=== PATIENT | female | born 1945 | race Caucasian/White ===

== ENCOUNTER 2016-09-29 23:08 | Inpatient (IN) | payer OTHER, MEDICAID ==
[~2016-09-29] VITALS: Ht 160 cm; Wt 66.2 kg
[~2016-09-29 23:08] MED LIST: ASPI-1093 PO; COZ50 PO; ISOS30TE PO; LANTUS SUBQ; METF500T PO; METO-50 PO; NIFE10SG6 PO; SIMV10TA1 PO; TRI48 PO
[2016-09-29 23:23] VITALS: BP 150/82
--- NOTE | 2016-09-30 02:58 | NUR ---
BIB WHEELCHAIR TO ER BED 4
--- NOTE | 2016-09-30 03:00 | NUR ---
71 Y/O F W/C/O ABD PAIN , N/V/D, FEVER, COUGH,SOB AND SWOLLEN TO FACE X 1 MTH. NO S/S OF DISTRESS NOTED AT THE MOMENT. ER MD MADE AWARE.
[2016-09-30 03:30] LABS: BASOPHILS % (AUTO) 1.1 % (0.0-2.0); EOSINOPHILS % (AUTO) 1.1 % (0.0-4.0); HEMATOCRIT 33.9 % (36-48); HEMOGLOBIN 10.8 g/dL (12.0-16.0); LYMPHOCYTES # (AUTO) 1.3 K/uL (2.5-16.5); LYMPHOCYTES % (AUTO) 30.3 % (20.5-51.1); MEAN CORPUSCULAR HEMOGLOBIN 26 pg (27-31); MEAN CORPUSCULAR HGB CONC 32 g/dL (33-37); MEAN CORPUSCULAR VOLUME 81 fL (80-94); MONOCYTES # (AUTO) 0.3 K/uL (0.8-1.0); MONOCYTES % (AUTO) 7.1 % (1.7-9.3); NEUTROPHILS # (AUTO) 2.7 K/uL (1.8-7.7); NEUTROPHILS % (AUTO) 60.4 % (42.2-75.2); PLATELET COUNT (AUTO) 180 K/uL (140-450); RED BLOOD CELL COUNT(AUTO) 4.17 MIL/uL (4.20-5.40); RED CELL DISTRIBUTION WIDTH 18.2 % (11.6-13.7); WHITE BLOOD COUNT (AUTO) 4.3 K/uL (4.8-10.8)
[2016-09-30 03:48] LABS: ANION GAP 12.6 (8-16); CALCIUM 8.3 mg/dL (8.5-10.1); CARBON DIOXIDE 26.1 mmol/L (21-32); CREATININE 1.2 mg/dL (0.6-1.3); POTASSIUM 3.7 mmol/L (3.5-5.1); TOTAL BILIRUBIN 0.8 mg/dL (0.0-1.0); TOTAL PROTEIN, SERUM 7.8 g/dL (6.4-8.2)
--- NOTE | 2016-09-30 05:07 | NUR ---
UNABLE TO INITIATE AN IV LINE. ER MD NOTIFIED AFTER SEVERAL ATTEMPS BY 3 DIFFERENT NURSES.
[2016-09-30 06:04] LABS: APPEARANCE,URINE HAZY (CLEAR); BILIRUBIN,URINE NEGATIVE (NEGATIVE); BLOOD, URINE NEGATIVE (NEGATIVE); COLOR,URINE YELLOW (YELLOW); LEUKOCYTE ESTERASE ,URINE NEGATIVE (NEGATIVE); NITRITE, URINE NEGATIVE (NEGATIVE); PH,URINE 5.5 (5.0-9.0); PROTEIN,URINE 2+ (NEGATIVE); UGLUCOSE NEGATIVE (NEGATIVE)
[2016-09-30 06:20] LABS: RBC,URINE NONE SEEN /HPF (0-5)
[2016-09-30 06:21] LABS: BACTERIA,URINE 1-9 (FEW) /HPF (None Seen); URINE AMORPHOUS URATE 2+ /HPF (None Seen)
[2016-09-30 06:22] LABS: SQUAMOUS EPITHELIAL CELL,UR 4-10 (MOD) /LPF (0-3 (FEW))
[2016-09-30] MEDS ORDERED: FUROSEMIDE 40 MG/4 ML VIAL IVP ONE (06:40)
[2016-09-30] MEDS ORDERED: NITROGLYCERIN 2% 1 GM PKT TP ONE (06:40)
--- NOTE | 2016-09-30 07:14 | NUR ---
CALL TO GIVE REPORT ON PT BUT WAS TOLD TO CALL BACK.
[2016-09-30] MEDS ORDERED: HYDROcodone/APAP 5/325 MG 1 TAB TAB PO PRN (07:20)
[2016-09-30] MEDS ORDERED: LORazepam 2 MG/ML VIAL IVP PRN (07:20)
[2016-09-30] MEDS ORDERED: DEXTROSE 50% 50 ML SYR IVP PRN (07:20)
[2016-09-30] MEDS ORDERED: ACETAMINOPHEN 325 MG TAB PO PRN (07:20)
[2016-09-30] MEDS ORDERED: ONDANSETRON 4 MG/2 ML VIAL IVP PRN (07:20)
[2016-09-30] MEDS ORDERED: INSULIN LISPRO SLIDING SCALE 100 UNITS/ML VIAL SUBQ PRN (07:20)
[2016-09-30] MEDS: BLOOD GLUCOSE MONITORING 1 DEV DEV FS SCH ×4 (07:30→21:00)
--- NOTE | 2016-09-30 07:48 | NUR ---
Patient appears to be resting comfortably in bed. Vital Signs within normal limits. Respirations even and unlabored.
--- NOTE | 2016-09-30 07:55 | NUR ---
Patient will be admitted to care of DR VERAS. Admited to TELE. Will go to room 110A. Belongings list completed. Report to AMBREEN.
[2016-09-30 08:15] VITALS: BP 154/89
--- NOTE | 2016-09-30 08:30 | NUR ---
Admitted from , with chief complaint of SOB X 1 MONTH. PT AAOX4. NO SOB NOTED AT THIS TIME. NO C/O PAIN. IV TO RT AC PATENT AND INTACT. CHEST DIMINISHED AIR ENTRY TO THE BASES. ABDOMEN SOFT, BOWEL SOUNDS PRESENT. BLE SWOLLEN +1 NOTED. 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 DAUGHTER KLEVER AT THE BEDSIDE. PT IS A 71 y/o ,Female, Cooperative,oriented to call light, bed, phone,television, bathroom, smoking policy,visiting hours, procedures, ID bracelet on. Belongings list checked. INSTRUCTED PT TO CALL FOR ASSISTANCE, CALL LIGHT WITHIN REACH. PT VERBALIZED UNDERSTANDING.
--- NOTE | 2016-09-30 08:40 | NUR ---
PATIENT HAS BEEN SCREENED AND CATEGORIZED MODERATE NUTRITION RISK. PATIENT WILL BE SEEN WITHIN 3-5 DAYS OF ADMISSION. 10/02/16-10/04/[address]
[2016-09-30] MEDS: NIFEdipine 10 MG CAPLF PO SCH (09:27)
[2016-09-30] MEDS: ECOTRIN 81 MG TABEC PO SCH (09:28)
[2016-09-30] MEDS: FUROSEMIDE 20 MG/2 ML VIAL IVP SCH (09:28)
[2016-09-30] MEDS: LOSARTAN 50 MG TAB PO SCH (09:29)
[2016-09-30] MEDS: metFORMIN 500 MG TAB PO SCH ×2 (09:29→17:00)
[2016-09-30] MEDS: METOPROLOL 50 MG TAB PO SCH ×2 (09:29→17:00)
[2016-09-30] MEDS: FENOFIBRATE 48 MG TAB PO SCH (09:30)
--- NOTE | 2016-09-30 09:30 | NUR ---
BEDSIDE COMMODE PROVIDED AT THE BEDSIDE.
[2016-09-30] MEDS: ISOSORBIDE MONONITRATE 30 MG TABER PO SCH ×2 (09:31→22:35)
[2016-09-30 12:00] VITALS: BP 123/71
--- NOTE | 2016-09-30 12:00 | NUR ---
LUNCH HELD FOR PROCEDURE. PT VERBALIZED UNDERSTANDING.
[2016-09-30 12:19] LABS: CREATINE KINASE MB 1.6 ng/mL (0-3.6)
--- NOTE | 2016-09-30 15:00 | NUR ---
NPO MAINTAINED. ULTRASOUND OF ABDOMEN ON GOING AT THE BEDSIDE.
--- NOTE | 2016-09-30 15:30 | NUR ---
ULTRASOUND OF ABDOMEN COMPLETED. LATE LUNCH SERVED.
[2016-09-30 16:00] VITALS: BP 120/62
--- NOTE | 2016-09-30 18:00 | NUR ---
PT EATING DINNER. NO SOB NOTED. NO COMPLAINTS MADE. VISITORS AT THE BEDSIDE.
[2016-09-30] MEDS: SIMVASTATIN 10 MG TAB PO SCH (18:03)
--- NOTE | 2016-09-30 19:10 | NUR ---
PT RESTING IN BED. NO SOB NOTED. NO SIGNS OF PAIN. WILL ENDORSE TO NEXT SHIFT NURSE FOR CONTINUITY OF CARE.
[2016-09-30 20:00] VITALS: BP 137/60
--- NOTE | 2016-09-30 20:00 | NUR ---
SEEN PT ASLEEP BUT EASILY AROUSABLE. INITIAL ASSESSMENT DONE. VITAL SIGNS CHECKED. PT DENIES ANY DISCOMFORT. SAFETY REINFORCED. PT DENIES ANY OTHER NEEDS. CALL LIGHT W/IN REACH.
--- NOTE | 2016-09-30 21:00 | NUR ---
BLOOD SUGAR CHECKED:151. WILL COVER W/ INSULIN. SNACKS GIVEN.
[2016-09-30] MEDS: INSULIN DETEMIR 100 UNITS/ML 10 ML VIAL SUBQ SCH (22:35)
--- NOTE | 2016-09-30 23:30 | NUR ---
SEEN PT ASLEEP. VS CHECKED. PT DENIES ANY DISCOMFORT. CALL LIGHT W/IN REACH.
[2016-10-01] VITALS: BP 137/72
[2016-10-01 04:00] VITALS: BP 141/69
--- NOTE | 2016-10-01 04:00 | NUR ---
AWAKEN PT. PT SAID "I'M SO SLEEPY". VS CHECKED. PT DENIES ANY DISCOMFORT.
--- NOTE | 2016-10-01 05:30 | NUR ---
BLOOD SUGAR CHECKED: 75. NO COVERAGE NEEDED.
--- NOTE | 2016-10-01 06:00 | NUR ---
SEEN PT GOT UP FROM THE BEDSIDE COMMODE. PT GIVEN APPLE JUICEX1. PT DENIES ANY OTHER NEEDS.
[2016-10-01 06:32] LABS: BASOPHILS % (AUTO) 0.4 % (0.0-2.0); EOSINOPHILS # (AUTO) 0.1 K/uL (0-0.4); EOSINOPHILS % (AUTO) 2.3 % (0.0-4.0); HEMATOCRIT 30.1 % (36-48); HEMOGLOBIN 9.6 g/dL (12.0-16.0); LYMPHOCYTES % (AUTO) 19.8 % (20.5-51.1); MEAN CORPUSCULAR HEMOGLOBIN 25 pg (27-31); MEAN CORPUSCULAR HGB CONC 32 g/dL (33-37); MEAN CORPUSCULAR VOLUME 80 fL (80-94); MONOCYTES # (AUTO) 0.5 K/uL (0.8-1.0); MONOCYTES % (AUTO) 9.1 % (1.7-9.3); NEUTROPHILS # (AUTO) 3.4 K/uL (1.8-7.7); NEUTROPHILS % (AUTO) 68.4 % (42.2-75.2); PLATELET COUNT (AUTO) 170 K/uL (140-450); RED BLOOD CELL COUNT(AUTO) 3.77 MIL/uL (4.20-5.40); RED CELL DISTRIBUTION WIDTH 18.5 % (11.6-13.7)
[2016-10-01 06:44] LABS: ANION GAP 9.6 (8-16); CALCIUM 8.2 mg/dL (8.5-10.1); CARBON DIOXIDE 29.4 mmol/L (21-32)
[2016-10-01 06:47] LABS: MAGNESIUM 1.2 mg/dL (1.8-2.4); PHOSPHORUS 4.1 mg/dL (2.5-4.9)
[2016-10-01] MEDS: BLOOD GLUCOSE MONITORING 1 DEV DEV FS SCH ×4 (06:47→21:01)
--- NOTE | 2016-10-01 07:05 | NUR ---
RECEIVED REPORT FROM NIGHT NURSE. PT IS AOX4. PT HAS NASAL CANNULA DELIVERING 02 AT 2L. PT'S IV IS ON THE RIGHT AC PATENT AND INTACT. PT'S SKIN IS INTACT. PT AMB TO BS WITH ASSISTANCE. PT DENIES SOB AND PAIN. PT HAS CALL LIGHT WITHIN READ, BED IS LOWERED, AND FLAT. WILL CONTINUE TO MONITOR.
[2016-10-01 07:29] VITALS: BP 134/75
[2016-10-01] MEDS: ISOSORBIDE MONONITRATE 30 MG TABER PO SCH ×3 (09:00→20:55)
--- NOTE | 2016-10-01 09:00 | NUR ---
SCHEDULED LASIX NOT ADMINISTERED. POTASSIUM 3.0 WILL NOTIFY
[2016-10-01] MEDS: LOSARTAN 50 MG TAB PO SCH (09:03)
[2016-10-01] MEDS: metFORMIN 500 MG TAB PO SCH ×2 (09:03→17:40)
[2016-10-01] MEDS: ECOTRIN 81 MG TABEC PO SCH (09:04)
[2016-10-01] MEDS: METOPROLOL 50 MG TAB PO SCH ×2 (09:04→17:00)
[2016-10-01] MEDS: FENOFIBRATE 48 MG TAB PO SCH (09:05)
[2016-10-01] MEDS: FUROSEMIDE 20 MG/2 ML VIAL IVP SCH ×2 (09:06→09:11)
--- NOTE | 2016-10-01 09:20 | NUR ---
CM NOTE INITIAL REVIEW [facility]# [phone] PH# [phone]
[2016-10-01] MEDS: NIFEdipine 10 MG CAPLF PO SCH (09:31)
--- NOTE | 2016-10-01 10:10 | NUR ---
SPOKE WITH DARY AZUL ABOUT PT'S POTASSIUM LEVEL OF 3.0. ORDERS RECEIVED.
[2016-10-01] MEDS ORDERED: POTASSIUM CHLORIDE 40 MEQ, LIDOCAINE 1% 25 MG in NACL 0.9% 250 ML IV ONE (10:15)
[2016-10-01 12:00] VITALS: BP 108/64
--- NOTE | 2016-10-01 12:00 | NUR ---
PT IS SLEEPING IN BED SHOWS NO S/S OF DISTRESS
[2016-10-01] MEDS ORDERED: MAG SULF 2000 MG/WATER PREMIX 50 ML IV ONE (12:40)
--- NOTE | 2016-10-01 14:00 | NUR ---
ASSISTED PT TO BSC. PT TOLERATED WELL. PT VOIDED.
[2016-10-01 16:00] VITALS: BP 95/59
--- NOTE | 2016-10-01 16:30 | NUR ---
BS CHECK : 98 NO INSULIN COVERAGE
[2016-10-01] MEDS: SIMVASTATIN 10 MG TAB PO SCH (17:42)
--- NOTE | 2016-10-01 19:05 | NUR ---
GAVE REPORT TO NIGHT NURSE AT BEDSIDE. PT ENDORSED IN STABLE CONDITION.
--- NOTE | 2016-10-01 19:30 | NUR ---
RECEIVED REPORT FROM DAY RN AT BEDSIDE, PATIENT IS AAOX4, RESTING IN BED, ON O2 2L VIA NC, NO SOB OR SIGN OF DISTRESS OBSERVED, IV TO LEFT AC PATENT AND INTACT, SKIN INTACT, DISCUSSED PLAN OF CARE WITH PATIENT, PATIENT VERBALIZED UNDERSTANDING, SAFETY MEASURES CHECKED, CALL LIGHT WITHIN REACH. WILL CONTINUE TO MONITOR.
[2016-10-01 20:00] VITALS: BP 116/70
[2016-10-01] MEDS: INSULIN DETEMIR 100 UNITS/ML 10 ML VIAL SUBQ SCH (20:58)
--- NOTE | 2016-10-01 21:15 | NUR ---
PM MEDS ADMINISTERED, PATIENT TOLERATED WELL, CALL LIGHT WITHIN REACH. WILL CONTINUE TO MONITOR.
--- NOTE | 2016-10-02 | NUR ---
VITAL SIGNS STABLE, NO SOB OR SIGN OF DISTRESS, CALL LIGHT WITHIN REACH. WILL CONTINUE TO MONITOR.
[2016-10-02 00:16] VITALS: BP 121/66
--- NOTE | 2016-10-02 02:30 | NUR ---
PATIENT SLEEPING, NO SOB OR SIGN OF DISTRESS, CALL LIGHT WITHIN REACH. WILL CONTINUE TO MONITOR.
[2016-10-02 04:00] VITALS: BP 123/70
--- NOTE | 2016-10-02 04:40 | NUR ---
VITAL SIGNS STABLE, NO SOB OR SIGN OF DISTRESS, PATIENT SLEEPING, EASILY AWOKEN, CALL LIGHT WITHIN REACH. WILL CONTINUE TO MONITOR.
[2016-10-02 05:43] LABS: BASOPHILS % (AUTO) 0.6 % (0.0-2.0); EOSINOPHILS # (AUTO) 0.1 K/uL (0-0.4); EOSINOPHILS % (AUTO) 2.2 % (0.0-4.0); HEMATOCRIT 30.2 % (36-48); HEMOGLOBIN 9.5 g/dL (12.0-16.0); LYMPHOCYTES # (AUTO) 2.1 K/uL (2.5-16.5); LYMPHOCYTES % (AUTO) 32.5 % (20.5-51.1); MEAN CORPUSCULAR HEMOGLOBIN 25 pg (27-31); MEAN CORPUSCULAR HGB CONC 32 g/dL (33-37); MEAN CORPUSCULAR VOLUME 80 fL (80-94); MONOCYTES # (AUTO) 0.7 K/uL (0.8-1.0); MONOCYTES % (AUTO) 10.8 % (1.7-9.3); NEUTROPHILS # (AUTO) 3.7 K/uL (1.8-7.7); NEUTROPHILS % (AUTO) 53.9 % (42.2-75.2); PLATELET COUNT (AUTO) 199 K/uL (140-450); RED BLOOD CELL COUNT(AUTO) 3.77 MIL/uL (4.20-5.40); RED CELL DISTRIBUTION WIDTH 18.3 % (11.6-13.7); WHITE BLOOD COUNT (AUTO) 6.6 K/uL (4.8-10.8)
[2016-10-02 06:03] LABS: ANION GAP 10.7 (8-16); CALCIUM 8.1 mg/dL (8.5-10.1); CARBON DIOXIDE 27.1 mmol/L (21-32); CREATININE 1.2 mg/dL (0.6-1.3); POTASSIUM 3.8 mmol/L (3.5-5.1)
[2016-10-02] MEDS: BLOOD GLUCOSE MONITORING 1 DEV DEV FS SCH ×2 (06:18→11:52)
--- NOTE | 2016-10-02 06:20 | NUR ---
BS CHECK 56, PATIENT ASYMPTOMATIC, GAVE PATIENT TWO JUICES TO DRINK, RECHECKED BS, 53, ADMINISTERED D50 PER MD ORDER, WILL RECHECK BS IN 15 MIN.
--- NOTE | 2016-10-02 06:41 | NUR ---
BS RECHECK, 180, PATIENT SLEEPING COMFORTABLE, NO SIGN OF DISTRESS, CALL LIGHT WITHIN REACH. WILL CONTINUE TO MONITOR.
--- NOTE | 2016-10-02 07:31 | NUR ---
ENDORSED PATIENT TO DAY RN AT BEDSIDE, PATIENT IN STABLE CONDITION RESTING COMFORTABLY
--- NOTE | 2016-10-02 07:42 | NUR ---
RECEIVED REPORT FROM BRENDA ALVARADO. PT IS SLEEPING IN BED BUT EASILY AWAKE, A/OX4, IV ON LT AC, SL, PATENT, INTACT, FLUSHING WELL, SKIN IS INTACT, NO S/S OF RESPIRATORY DISTRESS OR DISCOMFORT NOTED, DISCUSSED PLAN OF CARE WITH PT, PT VERBALIZED UNDERSTANDING, CALL LIGHT IS WITHIN REACH, WILL CONTINUE TO MONITOR.
[2016-10-02 08:00] VITALS: BP 135/86
[2016-10-02] MEDS: metFORMIN 500 MG TAB PO SCH (08:00)
[2016-10-02] MEDS: LOSARTAN 50 MG TAB PO SCH (08:36)
[2016-10-02] MEDS: ISOSORBIDE MONONITRATE 30 MG TABER PO SCH (08:36)
[2016-10-02] MEDS: METOPROLOL 50 MG TAB PO SCH (08:36)
[2016-10-02] MEDS: ECOTRIN 81 MG TABEC PO SCH (08:36)
[2016-10-02] MEDS: FENOFIBRATE 48 MG TAB PO SCH (08:37)
[2016-10-02] MEDS: NIFEdipine 10 MG CAPLF PO SCH (08:42)
--- NOTE | 2016-10-02 09:00 | NUR ---
DUE MEDICATIONS GIVEN, PT TOLERATED WELL, NO S/S OF RESPIRATORY DISTRESS OR DISCOMFORT NOTED, CALL LIGHT WITHIN REACH, WILL CONTINUE TO MONITOR.
--- NOTE | 2016-10-02 11:15 | NUR ---
PT RESTING IN BED, FAMILY MEMBER IS AT BEDSIDE, CALL LIGHT WITHIN REACH WILL CONTINUE TO MONITOR.
[2016-10-02 12:00] VITALS: BP 128/75
--- NOTE | 2016-10-02 14:28 | NUR ---
CM NOTE CONCURRENT REVIEW SENT TO [facility] FAX# [phone] # [phone] SIMBA TEMPLE [phone]
--- NOTE | 2016-10-02 14:40 | NUR ---
DISCHARGE INSTRUCTIONS GIVEN, PT VERBALIZED UNDERSTANDING, REMOVED ID WRIST BAND, REMOVED IV, CATHETER TIP INTACT, PT STABLE UPON DISCHARGE
== END 2016-10-02 14:40 | disposition home or self-care (01) | DRG 291 ==
LOC: MED 23:08 → MTU 09-30 07:04
PROVIDERS: ADMIT Preventive Medicine Preventive Medicine/Occupational Environmental Medicine; ATTEND Preventive Medicine Preventive Medicine/Occupational Environmental Medicine
DX: I11.0 Hypertensive heart disease with heart failure (principal); J96.00 Acute respiratory failure, unspecified whether with hypoxia or hypercapnia; E87.0 Hyperosmolality and hypernatremia; I42.9 Cardiomyopathy, unspecified; I16.0 Hypertensive urgency; D64.9 Anemia, unspecified; E11.65 Type 2 diabetes mellitus with hyperglycemia; E78.5 Hyperlipidemia, unspecified; I25.10 Atherosclerotic heart disease of native coronary artery without angina pectoris; E11.21 Type 2 diabetes mellitus with diabetic nephropathy; D72.819 Decreased white blood cell count, unspecified; E87.5 Hyperkalemia; E83.42 Hypomagnesemia; E83.52 Hypercalcemia; R74.0 Nonspecific elevation of levels of transaminase and lactic acid dehydrogenase [LDH]; I50.9 Heart failure, unspecified; Z79.899 Other long term (current) drug therapy
CPT/HCPCS: 36415; 71010; 76705; 80048; 80053; 81001; 82550; 82553; 82948; 83605; 83690; 83735; 83880; 84100; 84484; 85025; 87081; 87086; 93005; 96374; 99285; J1815; J1940; J2001; J3475; J3480; J7030; Q0092

== ENCOUNTER 2016-10-09 10:13 | Inpatient (IN) | payer OTHER, MEDICAID ==
[~2016-10-09] VITALS: Ht 157.5 cm; Wt 65.3 kg
[~2016-10-09 10:13] MED LIST changes: -ASPI-1093 PO; +ASPIRIN CHILDRE81 M1 PO; -COZ50 PO; +COZAAR50 MG PO; +ECOTRIN81 MG PO; +FENOFIBRATE160 MG PO; +FLOVENT DI50 MCG/Act INH; +GLUCOPHAGE500 MG PO; +IMDUR30 MG PO; +ISMO PO; -ISOS30TE PO; +LANTUS INS100 UNITS/ SUBQ; -LANTUS SUBQ; +LANTUS100 U/ML SUBQ; +LOPRESSOR25 MG PO; +LOPRESSOR50 MG PO; +LOSARTAN POTASS50 MG PO; -METF500T PO; +METFORMIN500 MG PO; -METO-50 PO; +METOPROLOL25 MG PO; -NIFE10SG6 PO; +PROCARDIA10 M1 PO; -SIMV10TA1 PO; +SIMVASTATIN10 M1 PO; -TRI48 PO; +TRICOR48 MG PO; +ZOCOR10 MG PO; +[UNRECOGNIZED DRUG - REMARK]; +[UNRECOGNIZED DRUG - REMARK]; +[UNRECOGNIZED DRUG - REMARK]
[2016-10-09 10:43] VITALS: BP 174/106
--- NOTE | 2016-10-09 10:48 | NUR ---
Patient ambulated with assistance to bed 6.
--- NOTE | 2016-10-09 10:49 | NUR ---
Patient taken to bed 6.
--- NOTE | 2016-10-09 10:55 | NUR ---
71/F bib daughters for evaluation of abdominal pain starting this morning. Patient states she did not take any of her medications this morning and states "I couldn't." Patient also c/o shortness of breath and c/o swelling to her feet. No edema noted at this time. Patient c/o mid abdominal pain and states "I have ulcers." Patient was admitted here and discharged last week. Daughter states she is following up with Vel and has an appointment Wednesday but has not seen him since discharge. Patient denies chest pain. Crackles noted to right lower lung base. Patient 98% on room air. RR 28. Patient also c/o nausea, denies vomiting. Patient is AOX4, argentine speaking, ambulatory with steady gait. VSS.
--- NOTE | 2016-10-09 11:10 | NUR ---
Patient being evaluated by physician at bedside.
[2016-10-09] MEDS ORDERED: TOPROL XL25 MG PO (11:17)
[2016-10-09] MEDS ORDERED: SYNTHROID0.05 MG PO (11:17)
[2016-10-09] MEDS ORDERED: RANITIDINE150 MG PO (11:17)
[2016-10-09] MEDS ORDERED: NAPROSYN500 MG PO (11:17)
[2016-10-09] MEDS ORDERED: AMARYL2 MG PO (11:17)
[2016-10-09] MEDS ORDERED: OMEPRAZOLE20 M3 PO (11:17)
[2016-10-09] MEDS ORDERED: LANTUS INS100 UNITS/ SUBQ (11:17)
[2016-10-09] MEDS ORDERED: LORazepam 2 MG/ML VIAL IVP ONE (11:20)
[2016-10-09] MEDS ORDERED: LEVAQUIN750 MG PO (11:35)
--- NOTE | 2016-10-09 11:40 | NUR ---
X-Ray at bedside.
--- NOTE | 2016-10-09 11:47 | NUR ---
Patient w/c assisted to bathroom and placed back into bed 6.
--- NOTE | 2016-10-09 12:04 | NUR ---
Consent for CT signed.
--- NOTE | 2016-10-09 12:15 | NUR ---
Patient appears to be resting comfortably in bed. Respirations even and unlabored. No signs of distress noted. Pt awaiting CT picking belt operator.
--- NOTE | 2016-10-09 12:23 | NUR ---
Pt taken to CT via rmarcella.
--- NOTE | 2016-10-09 12:40 | NUR ---
CT called and asked me to come check IV site to LAC. IV site flushing well, no swelling, no redness. I advised wire technician I thought it was okay. wire technician concerned about administering contrast. New IV inserted to RAC. Flushed with 10 cc of NS. Pt tolerated well.
[2016-10-09] MEDS ORDERED: NACL 0.9% 1,000 ML IV ONE (13:05)
--- NOTE | 2016-10-09 13:15 | NUR ---
Patient returned from CT and placed in bed 6.
--- NOTE | 2016-10-09 13:46 | NUR ---
Patient appears to be resting comfortably in bed. Vital Signs within normal limits. Respirations even and unlabored.
--- NOTE | 2016-10-09 14:27 | NUR ---
Son at bedside. Pt is stable, resting comfortably.
--- NOTE | 2016-10-09 14:29 | NUR ---
Dr. Lozano made aware of BP 191/104
--- NOTE | 2016-10-09 15:05 | NUR ---
Dr. Lozano made aware of BP 177/110. I asked if we could administer medication to address the BP and he stated "No, let the admitting take care of it." Pt is resting comfortably with son at bedside.
--- NOTE | 2016-10-09 15:33 | NUR ---
Called for report and Hilda from [employer] will call back for report.
--- NOTE | 2016-10-09 15:55 | NUR ---
Patient will be admitted to care of Dr. Shukla. Admited to TELE. Will go to room 119-A. Belongings list completed. Report to Barbara GUTIERREZ.
--- NOTE | 2016-10-09 16:00 | NUR ---
Okay by Red to enter admitting orders for Dr. Shukla.
[2016-10-09 16:15] VITALS: BP 154/105
--- NOTE | 2016-10-09 16:30 | NUR ---
Admitted from ED, with chief complaint of ABDOMINAL PAIN, AWAKE, ALERT, ORIENTEDX4. ON O2 AT 2LPM 100% O2 SAT. DENIES ANY PAIN OR DISCOMFORT AT THIS TIME. PT 71 y/o ,Female, Cooperative,oriented to call light, bed, phone,television, bathroom, smoking policy,visiting hours, procedures, ID bracelet on. Belongings list checked. PT AMBULATORY WITH ASSIST. SAFETY PRECAUTION IN PLACE. VERBALIZED UNDERSTANDING.
[2016-10-09] MEDS ORDERED: MORPHINE SULFATE 2 MG/ML SYR IVP PRN (16:45)
[2016-10-09] MEDS ORDERED: HYDROcodone/APAP 5/325 MG 1 TAB TAB PO PRN (16:45)
[2016-10-09] MEDS ORDERED: ONDANSETRON 4 MG/2 ML VIAL IVP PRN (16:45)
--- NOTE | 2016-10-09 17:00 | NUR ---
CALLED DR. WHITHEEAD AND MADE AWARE OF ADMISSION. RECEIVED TELEPHONE ORDER FROM DR. WHITEHEAD AND CARRIED OUT.
[2016-10-09 18:00] VITALS: BP 106/83
[2016-10-09] MEDS: NACL 0.9% 1,000 ML IV SCH (18:51)
--- NOTE | 2016-10-09 19:30 | NUR ---
ENDORSED TO [employer] OR [employer] ON STABLE CONDITION. FRIENDS AT BEDSIDE. PT AWAKE.
--- NOTE | 2016-10-09 19:31 | NUR ---
RECEIVED REPORT FROM DAY RN FOR CONTINUITY OF CARE. PATIENT IS A&OX4, DISCUSSED PLAN OF CARE WITH PATIENT, VERBALIZED UNDERSTANDING. SHIFT ASSESSMENT DONE, VS TAKEN, IN STABLE CONDITION. NO S/S OF RESPIRATORY DISTRESS NOTED ON 2L O2 VIA NC. PATIENT STATES ABDOMINAL PAIN, WILL MEDICATE PER MD ORDER. IV TO RT AC 20 GAUGE PATENT AND INFUSING FLUIDS WELL. SAFETY/FALL PRECAUTIONS ENFORCED. CALL LIGHT WITHIN REACH. WILL CONTINUE TO MONITOR.
[2016-10-09 20:00] VITALS: BP 163/98
[2016-10-09] MEDS: BLOOD GLUCOSE MONITORING 1 DEV DEV FS SCH (20:27)
[2016-10-09] MEDS: metroNIDAZOLE 500 MG/NS PREMIX 100 ML IV SCH (20:28)
[2016-10-09] MEDS: SUCRALFATE 1 GM TAB PO SCH (20:28)
[2016-10-09] MEDS: LOSARTAN 50 MG TAB PO SCH (20:28)
--- NOTE | 2016-10-09 20:28 | NUR ---
DUE MEDICATIONS ADMINISTERED, TOLERATED WELL. B/P 165/75, BP MEDS ADMINISTERED. BLOOD SUGAR 131, NO INSULIN COVERAGE NEEDED. CALL LIGHT WITHIN REACH.
[2016-10-09] MEDS: METOPROLOL SUCCINATE 50 MG TABER PO SCH (20:29)
--- NOTE | 2016-10-09 22:00 | NUR ---
PT AMBULATED TO RESTROOM, VOIDED. RETURNED TO BED AND MADE COMFORTABLE. CALL LIGHT WITHIN REACH.
--- NOTE | 2016-10-09 23:56 | NUR ---
VS TAKEN, STABLE. PT IS SLEEPING AT THIS TIME. NO S/S OF DISTRESS NOTED. WILL CONTINUE TO MONITOR.
[2016-10-10] VITALS: BP 154/88
--- NOTE | 2016-10-10 02:06 | NUR ---
PATIENT IS SLEEPING. NO S/S OF DISTRESS OR DISCOMFORT NOTED. WILL CONTINUE TO MONITOR.
[2016-10-10] MEDS: NACL 0.9% 1,000 ML IV SCH (03:54)
[2016-10-10 04:00] VITALS: BP 150/85
--- NOTE | 2016-10-10 04:02 | NUR ---
PT USED BEDSIDE COMMODE, VOIDED. RETURNED TO BED AND APPLIED SCDS. WILL CONTINUE TO MONITOR.
[2016-10-10] MEDS: metroNIDAZOLE 500 MG/NS PREMIX 100 ML IV SCH ×3 (05:21→21:05)
[2016-10-10] MEDS: BLOOD GLUCOSE MONITORING 1 DEV DEV FS SCH ×4 (06:44→21:05)
--- NOTE | 2016-10-10 06:44 | NUR ---
BLOOD SUGAR TAKEN, 66, GAVE PT JUICE AND REASSESSED, NOW 93.
--- NOTE | 2016-10-10 07:23 | NUR ---
ENDORSED PATIENT TO DAY RN FOR CONTINUITY OF CARE, PATIENT IS IN STABLE CONDITION.
--- NOTE | 2016-10-10 07:24 | NUR ---
PATIENT AWAKE, ALERT AND ORIENTED X4, NO SIGNS OF ACUTE DISTRESS, BREATHING EVEN AND UNLABORED BILATERALLY, ABDOMEN SOFT AND FLAT SLIGHTLY TENDER TO TOUCH, BOWEL AND BLADDER CONTINENCE, AMBULATORY WITH ASSIST, LEFT LOWER EXTREMITY LACERATION, IV PATENT NO REDNESS, BILATERAL HALF SIDE RAILS UP, BED IN LOW POSITION, CALL LIGHT WITHIN REACH.
[2016-10-10 08:00] VITALS: BP 154/102
[2016-10-10] MEDS: SUCRALFATE 1 GM TAB PO SCH ×4 (08:40→21:05)
[2016-10-10] MEDS: LOSARTAN 50 MG TAB PO SCH ×2 (08:40→21:06)
[2016-10-10] MEDS: PANTOPRAZOLE 40 MG INJ VIAL IVP SCH (08:41)
[2016-10-10] MEDS: ENOXAPARIN 40 MG/0.4 ML SYR SUBQ SCH (08:43)
--- NOTE | 2016-10-10 09:00 | NUR ---
RECEIVED AM LAB RESULTS, MAG 1.5, CHECKED WITH DR WHITEHEAD, NO NEW ORDERS AT THIS TIME.
[2016-10-10] MEDS ORDERED: LORazepam 0.5 MG TAB PO PRN (09:55)
--- NOTE | 2016-10-10 09:57 | NUR ---
RECEIVED FNS REFERRAL ON 10/09/16 FOR "NOT APPLICABLE" HOWEVER THIS IS NOT AN APPROPRIATE TRIGGER. PATIENT HAS BEEN SCREENED AND CATEGORIZED MODERATE RISK. PATIENT WILL BE SEEN WITHIN 3-5 DAYS OF ADMISSION. 10/12/16 TO 10/14/[address]
[2016-10-10] MEDS ORDERED: MAG SULF 2000 MG/WATER PREMIX 50 ML IV ONE (10:00)
--- NOTE | 2016-10-10 10:08 | NUR ---
RECEIVED NEW ORDER FOR MAG RIDER FROM DR WHITEHEAD, MAG 1.5, WILL CARRY OUT.
[2016-10-10 12:00] VITALS: BP 172/96
[2016-10-10] MEDS: hydrALAZINE 20 MG/ML VIAL IVP PRN (12:53)
--- NOTE | 2016-10-10 13:04 | NUR ---
BLOOD PRESSURE WAS 162/102, GAVE PRN HYDRALAZINE ORDERED, ASYMPTOMATIC, NO SIGNS OF ACUTE DISTRESS, WILL REASSESS IN ONE HOUR.
--- NOTE | 2016-10-10 13:38 | NUR ---
PT ASSESSED B.S CLEAR BILATERALLY. PT STATES SLIGHT SOB DUE TO PAIN WHICH IS 10/ STATED FROM THE PT NEAR IV SITE. PT ABLE TO SPEAK IN FULL COMPLETE SENTENCES WITHOUT ONSET OF SOB. NURSE MADE AWARE OF PAIN COMPLAINT. Addendum: 10/10/16 at 1340 by Gualberto Yang RT [id number] 97%
[2016-10-10 16:00] VITALS: BP 160/84
--- NOTE | 2016-10-10 19:20 | NUR ---
PT AWAKE AND RESPONSIVE, NO SIGNS OF ACUTE DISTRESS, ENDORSED TO ONCOMING REPAIRER HAIRSPRING NURSE FOR CONTINUITY OF CARE.
--- NOTE | 2016-10-10 19:21 | NUR ---
RECEIVED REPORT FROM DAY SHIFT NURSE. PT IS ALERT AND AWAKE, FAMILY MEMBERS AT BEDSIDE, DENIES PAIN AT THIS TIME. ON NASAL CANNULA AT 2LPM, NO S/S OF RESPIRATORY DISTRESS/DISCOMFORT NOTED. IV SITE IS PATENT AND INTACT. PLAN OF CARE DISCUSSED, VERBALIZED UNDERSTANDING. SAFETY MEASURES CHECKED, CALL LIGHT WITHIN REACH. WILL CONTINUE TO MONITOR.
[2016-10-10 20:00] VITALS: BP 150/80
[2016-10-10] MEDS: METOPROLOL SUCCINATE 50 MG TABER PO SCH (21:06)
--- NOTE | 2016-10-10 21:07 | NUR ---
DUE MEDS GIVEN. PROVIDED DRUG INFO, BENEFITS AND S/E, VERBALIZED UNDERSTANDING. PT TOLERATED WELL.
[2016-10-11] VITALS: BP 133/67
--- NOTE | 2016-10-11 | NUR ---
V/S CHECKED AND STABLE, DENIES PAIN, NO S/S OF RESPIRATORY DISTRESS/DISCOMFORT NOTED. WILL CONTINUE TO MONITOR.
--- NOTE | 2016-10-11 03:10 | NUR ---
EYES CLOSED, RESTING QUIETLY, BREATHING EVEN AND UNLABORED. NO SOB NOTED. CALL LIGHT WITHIN REACH.
[2016-10-11 04:00] VITALS: BP 153/81
--- NOTE | 2016-10-11 04:00 | NUR ---
V/S CHECKED AND STABLE. DENIES PAIN. NO SOB NOTED. CALL LIGHT WITHIN REACH.
[2016-10-11] MEDS: metroNIDAZOLE 500 MG/NS PREMIX 100 ML IV SCH ×2 (04:44→13:09)
--- NOTE | 2016-10-11 06:15 | NUR ---
BLOOD SUGAR CHECKED, BSL= 116, NO INSULIN COVERAGE NEEDED.
[2016-10-11] MEDS: BLOOD GLUCOSE MONITORING 1 DEV DEV FS SCH ×2 (06:46→11:28)
--- NOTE | 2016-10-11 07:20 | NUR ---
ENDORSED REPORT TO DAY SHIFT NURSE FOR CONTINUITY OF CARE. PT IS IN STABLE CONDITION.
--- NOTE | 2016-10-11 07:21 | NUR ---
PT AWAKE ALERT AND ORIENTED X4, NO SIGNS OF ACUTE DISTRESS, BREATHING EVEN BILATERALLY AND UNLABORED, ABDOMEN SOFT SLIGHTLY TENDER TO TOUCH, NO COMPLAINTS OF NAUSEA, SKIN WARM AND DRY WITH LLE LACERATION, IV PATENT NO REDNESS AROUND SITE, NO COMPLAINTS OF PAIN, BED IN LOW POSITION WITH BILATERAL HALF SIDE RAILS UP, CALL LIGHT WITHIN REACH. DR WHITEHEAD ON UNIT MADE AWARE PATIENT'S REQUEST FOR DIET TO BE ADVANCED, WILL SEE PATIENT AND FOLLOW UP.
[2016-10-11 08:00] VITALS: BP 148/82
[2016-10-11] MEDS: SUCRALFATE 1 GM TAB PO SCH ×2 (08:39→13:07)
[2016-10-11] MEDS: LOSARTAN 50 MG TAB PO SCH (08:40)
[2016-10-11] MEDS: PANTOPRAZOLE 40 MG INJ VIAL IVP SCH (08:41)
[2016-10-11] MEDS: ENOXAPARIN 40 MG/0.4 ML SYR SUBQ SCH (08:55)
[2016-10-11] MEDS ORDERED: FLAGYL500 MG PO (08:56)
[2016-10-11] MEDS ORDERED: CARAFATE1 GM/10 M1 PO (08:56)
--- NOTE | 2016-10-11 08:56 | NUR ---
WAS SEEN BY DR. WHITEHEAD, RECEIVED NEW DIET ORDER, AND MAY D/C HOME. NOTED AND WILL CARRY OUT.
[2016-10-11] MEDS ORDERED: NIFEdipine 30 MG TABER PO SCH (09:00)
[2016-10-11] MEDS: ACETAMINOPHEN 325 MG TAB PO PRN ×2 (09:37→13:59)
--- NOTE | 2016-10-11 10:15 | NUR ---
TRIED CALLING PATIENT'S DAUGHTER KLEVER PATEL AT [phone] TO ARRANGE FOR BEAN PICKER PATIENT IS TO BE DISCHARGED TODAY. DAUGHTER IS NOT ANSWERING HER PHONE I LEFT A VOICEMAIL. CHARGE NURSE, DILEEP, NOTIFIED.
--- NOTE | 2016-10-11 10:46 | NUR ---
2ND ATTEMPT TO GET A HOLD OF PATIENT'S DAUGHTER, KLEVER PATEL, AT [phone] HOWEVER STILL NO ANSWER OR CALL BACK. CHARGE NURSE, DILEEP, NOTIFIED. WILL TRY AGAIN LATER.
[2016-10-11 11:37] VITALS: BP 160/75
[2016-10-11] MEDS: hydrALAZINE 20 MG/ML VIAL IVP PRN (13:10)
[2016-10-11 14:00] VITALS: BP 114/58
--- NOTE | 2016-10-11 15:00 | NUR ---
PATIENT AWAKE ALERT AND ORIENTED X4, NO SIGNS OF ACUTE DISTRESS, STATED "PAIN IS BETTER" , EDUCATED PATIENT ON DISCHARGE INSTRUCTIONS INCLUDING, DIET, NEW PRESCRIPTIONS, SIGNS OF EMERGENCY AND TO FOLLOW UP WITH PCP WITHIN 1 WEEK. PT. VERBALIZED UNDERSTANDING. PROVIDED PATIENT WITH WRITTEN INSTRUCTIONS. D/C'D IV AND TELE MONITOR. PATIENT VERBALIZED THAT SHE HAD ALL HER PERSONAL BELONGINGS WITH HER. ESCORTED PATIENT OUT VIA WHEELCHAIR TO PRIVATE AUTO WITH FAMILY MEMBER.
--- NOTE | 2016-10-12 10:23 | NUR ---
RETRO REVIEW. FAXED ER REPORT, H&P AND DISCHARGE SUMMARY TO [facility] [phone] PHONE FIDELINA [phone]
[2016-10-16] MEDS ORDERED: NACL 0.9% 1,000 ML IV SCH (16:45)
== END 2016-10-11 15:00 | disposition home or self-care (01) | DRG 392 ==
LOC: MED 10:13 → MTU 16:00
PROVIDERS: ADMIT Hospitalist; ATTEND Hospitalist
DX: K29.80 Duodenitis without bleeding (principal); E44.1 Mild protein-calorie malnutrition; K21.9 Gastro-esophageal reflux disease without esophagitis; I16.0 Hypertensive urgency; E03.9 Hypothyroidism, unspecified; E78.5 Hyperlipidemia, unspecified; I25.10 Atherosclerotic heart disease of native coronary artery without angina pectoris; I11.0 Hypertensive heart disease with heart failure; I50.9 Heart failure, unspecified; E11.9 Type 2 diabetes mellitus without complications; W18.30XA Fall on same level, unspecified, initial encounter; Z79.2 Long term (current) use of antibiotics; Z79.899 Other long term (current) drug therapy; Y93.89 Activity, other specified; Y92.89 Other specified places as the place of occurrence of the external cause; Y99.8 Other external cause status

== ENCOUNTER 2016-10-18 15:24 | Observation (INO) | payer OTHER, MEDICAID ==
[~2016-10-18] VITALS: Ht 154.9 cm; Wt 67.1 kg
[~2016-10-18 15:24] MED LIST changes: +ASPI-1093 PO; -ASPIRIN CHILDRE81 M1 PO; +COZ50 PO; -COZAAR50 MG PO; -ECOTRIN81 MG PO; -FENOFIBRATE160 MG PO; -FLOVENT DI50 MCG/Act INH; +GLIM2TAB PO; -GLUCOPHAGE500 MG PO; -IMDUR30 MG PO; -ISMO PO; -LANTUS INS100 UNITS/ SUBQ; +LANTUS SUBQ; -LANTUS100 U/ML SUBQ; -LOPRESSOR25 MG PO; -LOPRESSOR50 MG PO; -LOSARTAN POTASS50 MG PO; +METF500T PO; -METFORMIN500 MG PO; +METO25TE2 PO; -METOPROLOL25 MG PO; +METR500T1 PO; +OMEP20TC10 PO; -PROCARDIA10 M1 PO; +RANI150T8 PO; +SIMV10TA1 PO; -SIMVASTATIN10 M1 PO; +SUCR1SUS PO; +SYN.05 PO; -TRICOR48 MG PO; -ZOCOR10 MG PO; -[UNRECOGNIZED DRUG - REMARK]; -[UNRECOGNIZED DRUG - REMARK]; -[UNRECOGNIZED DRUG - REMARK]
[2016-10-18 15:37] VITALS: BP 154/67
--- NOTE | 2016-10-18 15:54 | NUR ---
Patient ambulated to bed 3 with family after providing a urine specimen. RN evaluating patient at bedside.
--- NOTE | 2016-10-18 15:59 | NUR ---
Dr. Chaudhary evaluating patient at bedside.
[2016-10-18] MEDS ORDERED: ASPIRIN 81 MG TAB.CHEW PO ONE (16:05)
--- NOTE | 2016-10-18 16:08 | NUR ---
71/F TO ED WITH C/O SOB X3 DAYS WITH CHEST PAIN. DAUGHTER STATES PT FELL LAST NIGHT. NO LOC. PAIN IN CHEST 01/28. RADIAL PULSES PRESENT BILAT. LUNGS CLEAR BILAT. DENIES N/V/D. AAOX4. VSS. NO SIGNS OF DISTRESS.
[2016-10-18 16:48] LABS: ANION GAP 10.6 (8-16); CALCIUM 8.2 mg/dL (8.5-10.1); CREATININE 0.9 mg/dL (0.6-1.3); POTASSIUM 3.6 mmol/L (3.5-5.1)
[2016-10-18 16:53] LABS: ALBUMIN 2.9 g/dL (3.4-5.0); TOTAL PROTEIN, SERUM 7.5 g/dL (6.4-8.2)
[2016-10-18 17:09] LABS: MAGNESIUM 1.4 mg/dL (1.8-2.4); THYROID STIMULATING HORMONE 10.71 uIU/mL (0.34-3.76)
[2016-10-18 17:12] LABS: HEMATOCRIT 33.8 % (36-48); HEMOGLOBIN 10.6 g/dL (12.0-16.0); MEAN CORPUSCULAR HEMOGLOBIN 25 pg (27-31); MEAN CORPUSCULAR HGB CONC 31 g/dL (33-37); MEAN CORPUSCULAR VOLUME 80 fL (80-94); PLATELET COUNT (AUTO) 142 K/uL (140-450); RED BLOOD CELL COUNT(AUTO) 4.24 MIL/uL (4.20-5.40); RED CELL DISTRIBUTION WIDTH 19.3 % (11.6-13.7); WHITE BLOOD COUNT (AUTO) 3.6 K/uL (4.8-10.8)
[2016-10-18 17:19] LABS: EOSINOPHILS % (AUTO) 0.8 % (0.0-4.0); LYMPHOCYTES % (AUTO) 23.9 % (20.5-51.1); MONOCYTES % (AUTO) 7.4 % (1.7-9.3); NEUTROPHILS % (AUTO) 66.7 % (42.2-75.2)
[2016-10-18 17:20] LABS: BASOPHILS % (AUTO) 1.2 % (0.0-2.0); LYMPHOCYTES # (AUTO) 0.8 K/uL (2.5-16.5); MONOCYTES # (AUTO) 0.3 K/uL (0.8-1.0); NEUTROPHILS # (AUTO) 2.3 K/uL (1.8-7.7)
--- NOTE | 2016-10-18 17:30 | NUR ---
Patient appears to be resting comfortably in bed. Vital Signs within normal limits. Respirations even and unlabored.
[2016-10-18 17:53] LABS: BILIRUBIN,URINE 2+ (NEGATIVE); BLOOD, URINE NEGATIVE (NEGATIVE); LEUKOCYTE ESTERASE ,URINE NEGATIVE (NEGATIVE); NITRITE, URINE NEGATIVE (NEGATIVE); PH,URINE 5.5 (5.0-9.0); PROTEIN,URINE 2+ (NEGATIVE); UGLUCOSE NEGATIVE (NEGATIVE)
[2016-10-18 17:56] LABS: APPEARANCE,URINE CLEAR (CLEAR); COLOR,URINE AMBER (YELLOW)
[2016-10-18 18:06] LABS: ICTOTEST NEGATIVE (NEGATIVE)
[2016-10-18 18:07] LABS: BACTERIA,URINE 1+ /HPF (None Seen); RBC,URINE 0-5 (RARE) /HPF (0-5); SQUAMOUS EPITHELIAL CELL,UR 20-50 /LPF (0-3 (FEW))
[2016-10-18] MEDS ORDERED: NACL 0.9% 1,000 ML IV SCH (18:43)
[2016-10-18] MEDS ORDERED: HYDROcodone/APAP 5/325 MG 1 TAB TAB PO PRN (18:45)
[2016-10-18] MEDS ORDERED: ACETAMINOPHEN 325 MG TAB PO PRN (18:45)
[2016-10-18] MEDS ORDERED: MORPHINE SULFATE 2 MG/ML SYR IV PRN (18:55)
[2016-10-18] MEDS ORDERED: ONDANSETRON 4 MG/2 ML VIAL IVP PRN (18:55)
[2016-10-18] MEDS ORDERED: NITROGLYCERIN 2% 1 GM PKT TOP PRN (18:55)
--- NOTE | 2016-10-18 19:01 | NUR ---
GAVE REPORT TO BRENDA HIGGINS. WILL TRANSPORT AFTER CT WITH CONTRAST
--- NOTE | 2016-10-18 19:02 | NUR ---
REPORT RECEIVED FROM BRENDA MARTINEZ
--- NOTE | 2016-10-18 19:05 | NUR ---
US BEING DONE AT BEDSIDE
[2016-10-18] MEDS ORDERED: DEXTROSE 50% 50 ML SYR IVP PRN (19:20)
[2016-10-18] MEDS ORDERED: INSULIN LISPRO SLIDING SCALE 100 UNITS/ML VIAL SUBQ PRN (19:20)
--- NOTE | 2016-10-18 19:40 | NUR ---
US COMPLETE AT BEDSIDE
--- NOTE | 2016-10-18 19:53 | NUR ---
CT CALLED AND NOTIFIED THAT PT IS READY FOR PICK-UP
--- NOTE | 2016-10-18 20:15 | NUR ---
PT TO CT VIA RAMIRO IN STABLE CONDITION
--- NOTE | 2016-10-18 20:47 | NUR ---
PT ARRIVED ON UNIT IN STABLE CONDITION. NO SOB, NO SIGNS OF DISTRESS. PT IS AOX4, AMBULATORY, JAPANESE SPEAKING. SKIN IS INTACT. PT DENIES PAIN AT THIS TIME. IV TO RT FA 24G, RT AC 20G, BOTH ASYMPTOMATIC, INTACT, PATENT, SALINE LOCKED. ORIENTED PT TO ROOM AND UNIT. PLAN OF CARE DISCUSSED WITH PT. SAFETY MEASURES IN PLACE. CALL LIGHT WITHIN REACH. WILL CONTINUE TO MONITOR.
--- NOTE | 2016-10-18 20:52 | NUR ---
Patient will be admitted to care of DR GRIMM. Admited to OBS. Will go to [facility]. Belongings list completed. Report to BRENDA HIGGINS (DAY SHIFT FROM BRENDA MARTINEZ DAY, SHIFT. BRENDA PACKER NOC SHIFT.
[2016-10-18] MEDS: metFORMIN 500 MG TAB PO SCH (21:00)
[2016-10-18] MEDS ORDERED: SIMVASTATIN 20 MG TAB PO SCH (21:00)
[2016-10-18] MEDS ORDERED: METOPROLOL SUCCINATE 50 MG TABER PO SCH (21:00)
[2016-10-18 21:18] VITALS: BP 157/102
[2016-10-18] MEDS: BLOOD GLUCOSE MONITORING 1 DEV DEV FS SCH (21:29)
[2016-10-18] MEDS: LOSARTAN 50 MG TAB PO SCH (21:33)
--- NOTE | 2016-10-18 21:34 | NUR ---
BLOOD SUGAR 52, ADMINISTERED D 50 IVP, PT TOLERATED WELL. PT TOLERATED DUE MEDS WELL. HELD METFORMIN DUE TO DECREASED BLOOD SUGAR. IV SITES ASYMPTOMATIC, INTACT, PATENT, IVF RUNNING. PT DENIES PAIN AT THIS TIME. PLAN OF CARE DISCUSSED WITH PT. SAFETY MEASURES IN PLACE. CALL LIGHT WITHIN REACH. WILL CONTINUE TO MONITOR.
--- NOTE | 2016-10-18 21:51 | NUR ---
AFTER ADMINISTERING D50 AND PROVIDING PT WITH SANDWICH, JUICE, AND SNACKS, RECHECKED BLOOD SUGAR, 84. PT STABLE. WILL CONTINUE TO MONITOR.
--- NOTE | 2016-10-18 22:29 | NUR ---
SPOKE WITH MD SIRISHA MD MADE AWARE OF MAGNESIUM LEVEL 1.4, GAVE ORDER FOR MONICA CHOWDARY F/U.
[2016-10-18] MEDS ORDERED: MAG SULF 2000 MG/WATER PREMIX 50 ML IV SCH (22:30)
[2016-10-19] VITALS: BP 145/86
--- NOTE | 2016-10-19 00:05 | NUR ---
VS STABLE ON ROOM AIR. NO SOB, NO SIGNS OF DISTRESS. IV SITE ASYMPTOMATIC, INTACT, PATENT, IVF RUNNING. PT DENIES PAIN AT THIS TIME. PLAN OF CARE DISCUSSED WITH PT. SAFETY MEASURES IN PLACE. CALL LIGHT WITHIN REACH. WILL CONTINUE TO MONITOR.
--- NOTE | 2016-10-19 02:48 | NUR ---
PT ASLEEP IN BED. NO SOB, NO SIGNS OF DISTRESS. IV SITE ASYMPTOMATIC, INTACT, PATENT, IVF RUNNING. SAFETY MEASURES IN PLACE. ALL LIGHT WITHIN REACH. WILL CONTINUE TO MONITOR.
[2016-10-19 04:00] VITALS: BP 149/96
[2016-10-19] MEDS: BLOOD GLUCOSE MONITORING 1 DEV DEV FS SCH ×2 (05:51→11:26)
[2016-10-19] MEDS ORDERED: LEVOTHYROXINE 0.05 MG TAB PO SCH (06:30)
--- NOTE | 2016-10-19 07:10 | NUR ---
ENDORSED PT IN STABLE CONDITION TO BRENDA HUNG. ALL NEEDS HAVE BEEN MET AT THIS TIME.
--- NOTE | 2016-10-19 07:15 | NUR ---
RECEIVED PT IN BED. ASLEEP. AROUSABLE TO VOICE. NO SOB NOTED. ALERT, ORIENTEDX4. DENIES ANY PAIN OR DISCOMFORT AT THIS TIME. POSITIVE BOWEL SOUNDS NOTED ON FOUR QUADRANTS. PT AMBULATORY WITH BEDSIDE COMMODE. SKIN INTACT. CALL LIGHT WITHIN REACH. SAFETY PRECAUTION IN PLACE.
[2016-10-19 08:00] VITALS: BP 154/99
[2016-10-19] MEDS: metFORMIN 500 MG TAB PO SCH (08:14)
[2016-10-19] MEDS: LOSARTAN 50 MG TAB PO SCH (08:15)
--- NOTE | 2016-10-19 08:26 | NUR ---
PATIENT HAS BEEN SCREENED AND CATEGORIZED MODERATE NUTRITION RISK. PATIENT WILL BE SEEN WITHIN 3-5 DAYS OF ADMISSION. 10/21/16-10/23/[address]
[2016-10-19] MEDS ORDERED: DOCUSATE SODIUM 100 MG GELCAP PO SCH (09:00)
[2016-10-19] MEDS ORDERED: PANTOPRAZOLE 40 MG TABEC PO SCH (09:00)
[2016-10-19] MEDS ORDERED: LISINOPRIL 5 MG TAB PO SCH (09:00)
[2016-10-19] MEDS ORDERED: ECOTRIN 81 MG TABEC PO SCH (09:00)
[2016-10-19 09:06] LABS: HEMATOCRIT 36.1 % (36-48); HEMOGLOBIN 11.5 g/dL (12.0-16.0); MEAN CORPUSCULAR HEMOGLOBIN 26 pg (27-31); MEAN CORPUSCULAR HGB CONC 32 g/dL (33-37); MEAN CORPUSCULAR VOLUME 80 fL (80-94); PLATELET COUNT (AUTO) 141 K/uL (140-450); RED CELL DISTRIBUTION WIDTH 19.9 % (11.6-13.7); WHITE BLOOD COUNT (AUTO) 3.4 K/uL (4.8-10.8)
[2016-10-19 09:19] LABS: BAND % (MANUAL) 3 % (0-8); LYMPHOCYTES % (MANUAL) 15 % (20-46); MONOCYTES % (MANUAL) 2 % (5-12); NEUTROPHILS % (MANUAL) 80 (43-65)
[2016-10-19 09:23] LABS: ANION GAP 12.1 (8-16); CARBON DIOXIDE 26.5 mmol/L (21-32); POTASSIUM 3.6 mmol/L (3.5-5.1)
[2016-10-19 09:24] LABS: CALCIUM 8.2 mg/dL (8.5-10.1); MAGNESIUM 2.2 mg/dL (1.8-2.4); PHOSPHORUS 4.4 mg/dL (2.5-4.9)
[2016-10-19] MEDS ORDERED: LEVOTHYROXINE 0.025 MG TAB PO SCH (09:32)
[2016-10-19] MEDS ORDERED: metFORMIN 500 MG TAB PO SCH (09:32)
[2016-10-19 10:05] LABS: CHOL/HDL RATIO 5.1 (1-4.5)
[2016-10-19 12:00] VITALS: BP 155/93
--- NOTE | 2016-10-19 13:00 | NUR ---
HEALTH TEACHINGS GIVEN TO PT. DISCHARGE ORDERS MADE BY AND CARRIED OUT. PT MADE AWARE. VERBALIZED UNDERSTANDING. CALLED DAUGHTER KLEVER ZAFAR MADE AWARE OF DISCHARGE SHE SAID SHE WILL BE HERE IN AN HOUR. PT ALERT AWAKE ORIENTED X4. SIGNED DISCHARGE FORMS. PRINTED OUT HEALTH TEACHINGS AND INSTRUCTIONS IN [place]. IV CANNULA REMOVED AND INTACT. DENIES ANY PAIN OR DISCOMFORT AT THIS TIME. AWAITING DAUGHTER TO DATA SCIENTIST PT.
--- NOTE | 2016-10-19 14:55 | NUR ---
DAUGHTER CAME TO PICK PT UP. ARM BAND REMOVED. NO SOB. PT DENIES ANY PAIN OR DISCOMFORT. ARM BAND REMOVED. WHEELED BY RN TO THE HOSPITAL PARKING LOT. PT ON STABLE CONDITION.
[2016-10-19] MEDS ORDERED: SIMVASTATIN 10 MG TAB PO SCH (17:00)
[2016-10-20 08:38] LABS: T4 (THYROXINE) 6.5 ug/dL (4.5 - 12.0)
== END 2016-10-19 14:55 | disposition home or self-care (01) ==
LOC: MED 15:25 → MTU 18:42
PROVIDERS: ADMIT Student in an Organized Health Care Education/Training Program; ATTEND Student in an Organized Health Care Education/Training Program
DX: R07.89 Other chest pain (principal); I42.9 Cardiomyopathy, unspecified; I10 Essential (primary) hypertension; E11.65 Type 2 diabetes mellitus with hyperglycemia; E03.9 Hypothyroidism, unspecified; E46 Unspecified protein-calorie malnutrition
CPT/HCPCS: 36415; 71010; 71275; 80048; 80053; 80061; 81001; 82150; 82948; 83036; 83690; 83735; 83880; 84100; 84436; 84439; 84443; 84479; 84484; 85025; 85379; 87081; 87086; 93005; 93970; 96361; 96365; 96375; 99285; G0378; J1815; J3475; J7030; Q0092; Q9967

== ENCOUNTER 2016-11-01 11:44 | Emergency (ER) | payer OTHER, MEDICAID ==
[~2016-11-01] VITALS: Ht 157.5 cm; Wt 68.0 kg
[2016-11-01 11:49] VITALS: BP 180/97
--- NOTE | 2016-11-01 12:02 | NUR ---
Patient to bed 06.
--- NOTE | 2016-11-01 12:15 | NUR ---
PATIENT PRESENTS TO ED WITH C/O RAYNAUD'S PHENOMENON--C/O PAIN TO CALLOUS ON FINGER FIRST NOTED DURING HER ER VISIT HERE < 2 WKS AGO FAMILY CONCERNED, IT KEEP CONTINUING CONTINUES WITH DIZZINESS AND BLE SWELLING/PAIN HX----DM, HTN, RX---- DENIES N/V/D; SKIN IS PINK/WARM/DRY; AAOX4 WITH EVEN AND STEADY GAIT; LUNGS CLEAR BL; HR EVEN AND REGULAR; PT DENIES ANY FEVER, CP, SOB, OR COUGH AT THIS TIME; PATIENT STATES PAIN OF 7/10 AT THIS TIME; VSS; PATIENT POSITIONED FOR COMFORT; HOB ELEVATED; BEDRAILS UP X2; BED DOWN. ER MD MADE AWARE OF PT STATUS.
[2016-11-01] MEDS ORDERED: NACL 0.9% 1,000 ML IV SCH (12:16)
[2016-11-01] MEDS ORDERED: ONDANSETRON 4 MG/2 ML VIAL IVP ONE (12:20)
[2016-11-01] MEDS ORDERED: MORPHINE SULFATE 2 MG/ML SYR IVP ONE (12:20)
[2016-11-01] MEDS ORDERED: ASPIRIN 325 MG TAB PO ONE (12:20)
[2016-11-01] MEDS ORDERED: NITROGLYCERIN 0.4 MG TAB SL ONE (12:20)
--- NOTE | 2016-11-01 12:25 | NUR ---
XRAY at bedside.
[2016-11-01 13:12] LABS: HEMOGLOBIN 11.8 g/dL (12.0-16.0); MEAN CORPUSCULAR HEMOGLOBIN 25 pg (27-31); MEAN CORPUSCULAR HGB CONC 31 g/dL (33-37); MEAN CORPUSCULAR VOLUME 81 fL (80-94); PLATELET COUNT (AUTO) 101 K/uL (140-450); RED BLOOD CELL COUNT(AUTO) 4.71 MIL/uL (4.20-5.40); RED CELL DISTRIBUTION WIDTH 21.6 % (11.6-13.7); WHITE BLOOD COUNT (AUTO) 4.1 K/uL (4.8-10.8)
[2016-11-01 13:23] LABS: BILIRUBIN,URINE 1+ (NEGATIVE); BLOOD, URINE TRACE-I (NEGATIVE); LEUKOCYTE ESTERASE ,URINE NEGATIVE (NEGATIVE); NITRITE, URINE NEGATIVE (NEGATIVE); PROTEIN,URINE 2+ (NEGATIVE); UGLUCOSE NEGATIVE (NEGATIVE)
[2016-11-01 13:25] LABS: APPEARANCE,URINE HAZY (CLEAR); COLOR,URINE AMBER (YELLOW)
[2016-11-01 13:34] LABS: CALCIUM 8.3 mg/dL (8.5-10.1); CARBON DIOXIDE 23.7 mmol/L (21-32); POTASSIUM 3.7 mmol/L (3.5-5.1)
[2016-11-01 13:35] LABS: ALBUMIN 3.2 g/dL (3.4-5.0); TOTAL BILIRUBIN 1.2 mg/dL (0.0-1.0); TOTAL PROTEIN, SERUM 8.5 g/dL (6.4-8.2)
[2016-11-01 13:36] LABS: ANISOCYTOSIS 1+; BAND % (MANUAL) 0 % (0-8); BASOPHILS % (MANUAL) 0 % (0-2); EOSINOPHILS % (MANUAL) 0 % (0-4); LYMPHOCYTES % (MANUAL) 18 % (20-46); MONOCYTES % (MANUAL) 4 % (5-12); NEUTROPHILS % (MANUAL) 78 (43-65); PLATELET ESTIMATE SLIGHTLY DECREASED
[2016-11-01 13:49] LABS: ICTOTEST NEGATIVE (NEGATIVE); RBC,URINE 3-10 (FEW) /HPF (0-5)
[2016-11-01 13:50] LABS: BACTERIA,URINE 1+ /HPF (None Seen); SQUAMOUS EPITHELIAL CELL,UR 4-10 (MOD) /LPF (0-3 (FEW)); WBC,URINE 6-15 (FEW) /HPF (0-5); YEAST,URINE Few /HPF (None Seen)
[2016-11-01 14:06] LABS: INR 1.3 (0.8-1.2); PARTIAL THROMBOPLASTIN TIME 25.6 secs (22-35.6); PROTHROMBIN TIME 12.2 secs (10.8-13.4)
--- NOTE | 2016-11-01 14:23 | NUR ---
PT RESTING COMFORTABLY ON BED WITH DAUGHTER AT BEDSIDE, NO C/O PAIN AT THIS TIME, ON MONITOR, WILL CONTINUE TO MONITOR
[2016-11-01 14:50] VITALS: BP 171/87
== END 2016-11-01 14:50 | disposition home or self-care (01) ==
LOC: MED 11:44
DX: M79.644 Pain in right finger(s) (principal); I50.9 Heart failure, unspecified; E11.9 Type 2 diabetes mellitus without complications; K21.9 Gastro-esophageal reflux disease without esophagitis; I10 Essential (primary) hypertension; E03.9 Hypothyroidism, unspecified; Z95.1 Presence of aortocoronary bypass graft
CPT/HCPCS: 36415; 71010; 80053; 81001; 82150; 82553; 82948; 83690; 83880; 84484; 85025; 85379; 85610; 85730; 87086; 93005; 96361; 96374; 96375; 99285; J2270; J2405; Q0092

== ENCOUNTER 2016-11-08 18:32 | Observation (INO) | payer OTHER, MEDICAID ==
[~2016-11-08] VITALS: Ht 157.5 cm; Wt 68.0 kg
[~2016-11-08 18:32] MED LIST changes: +AMARYL2 MG PO; -ASPI-1093 PO; +ASPIRIN CHILDRE81 M1 PO; +CARAFATE1 GM/10 M1 PO; -COZ50 PO; +COZAAR50 MG PO; +ECOTRIN81 MG PO; +FENOFIBRATE160 MG PO; +FLAGYL500 MG PO; +FLOVENT DI50 MCG/Act INH; -GLIM2TAB PO; +GLUCOPHAGE500 MG PO; +IMDUR30 MG PO; +ISMO PO; +LANTUS INS100 UNITS/ SUBQ; -LANTUS SUBQ; +LANTUS100 U/ML SUBQ; +LEVAQUIN750 MG PO; +LOPRESSOR25 MG PO; +LOPRESSOR50 MG PO; +LOSARTAN POTASS50 MG PO; -METF500T PO; +METFORMIN500 MG PO; -METO25TE2 PO; +METOPROLOL25 MG PO; -METR500T1 PO; +NAPROSYN500 MG PO; -OMEP20TC10 PO; +OMEPRAZOLE20 M3 PO; +PROCARDIA10 M1 PO; -RANI150T8 PO; +RANITIDINE150 MG PO; -SIMV10TA1 PO; +SIMVASTATIN10 M1 PO; -SUCR1SUS PO; -SYN.05 PO; +SYNTHROID0.05 MG PO; +TOPROL XL25 MG PO; +TRICOR48 MG PO; +ZOCOR10 MG PO; +[UNRECOGNIZED DRUG - REMARK]; +[UNRECOGNIZED DRUG - REMARK]; +[UNRECOGNIZED DRUG - REMARK]
[2016-11-08 19:36] VITALS: BP 156/82
--- NOTE | 2016-11-08 20:30 | NUR ---
BIB WHEELCHAIR TO ER BED 4
[2016-11-08] MEDS ORDERED: NACL 0.9% 1,000 ML IV SCH (20:31)
--- NOTE | 2016-11-08 20:40 | NUR ---
PATIENT PRESENTS TO ED WITH GEN WEAKNESS, SWOLLEN LEGS, DIZZINESS,FOR A MONTH. S/P FALL 2 TIMES . PT DENIES N/V/D; SKIN HAS BRUISES NOTED ON UPPER EXTREMETIES. AAOX4 WITH UNSTEADY GAIT. NEEDS W/C OR WALKER FOR ASSIST; LUNGS CLEAR BL; HR EVEN AND REGULAR; PT DENIES ANY FEVER, CP, OR COUGH AT THIS TIME; PATIENT STATES PAIN OF 8/10 AT THIS TIME; VSS; PATIENT POSITIONED FOR COMFORT; HOB ELEVATED; BEDRAILS UP X2; BED DOWN. ER MD MADE AWARE OF PT STATUS. BILAT. LOWER EXT. SWOLLEN.
[2016-11-08] MEDS ORDERED: FUROSEMIDE 40 MG/4 ML VIAL IVP ONE (22:05)
[2016-11-08] MEDS ORDERED: MORPHINE SULFATE 2 MG/ML SYR IVP PRN (22:15)
[2016-11-08] MEDS ORDERED: NACL 0.9% 500 ML IV SCH (22:15)
[2016-11-08] MEDS ORDERED: ONDANSETRON 4 MG/2 ML VIAL IVP PRN (22:15)
[2016-11-08] MEDS ORDERED: DOCUSATE SODIUM 100 MG GELCAP PO PRN (22:15)
[2016-11-08] MEDS ORDERED: ACETAMINOPHEN 325 MG TAB PO PRN (22:15)
[2016-11-08] MEDS ORDERED: HYDROcodone/APAP 5/325 MG 1 TAB TAB PO PRN (22:15)
[2016-11-08] MEDS ORDERED: IPRATROPIUM 0.02% 0.5 MG/2.5 ML NEBU INH PRN (22:25)
--- NOTE | 2016-11-08 23:15 | NUR ---
RECEIVED FROM ER PER MIKEY AWAKE AND ALERT. ABLE TO VERBALIZE NEEDS WELL IN TAMAZIGHT. PT. DX. OF CHF EXACERBATION. C/O WEAKNESS AND SOB. IVF SITE TO #24. AFEBRILE. ON BREATHING TREATMENT AT THIS TIME. 02 SAT ON ROOM AIR PER RESPIRATORY THERAPIST IS 95 %. CARE PLANS FOR THE NIGHT EXPLAINED TO PT. CALL LIGHT WITH IN REACH. PT. AWARE OF IT. SKIN INTACT AND BILATERAL LOWER EXTREMITIES WITH + 1 EDEMA. NOTED WITH SMALL RASHES ALL OVER THE BODY AND A DRY SCAB TO LOWER LEFT LEG. TELEMETRY MONITORING . WITH OCCASIONAL PVCS / NSR 68.
--- NOTE | 2016-11-08 23:15 | NUR ---
Patient will be admitted to care of DR CAIN. Admited to TELE. Will go to [id number]. Belongings list completed. Report to BRENDA SCRUGGS.
[2016-11-08] MEDS: ALBUTEROL 0.083% 2.5 MG/3 ML NEBU INH SCH (23:24)
[2016-11-09 00:11] VITALS: BP 150/100
--- NOTE | 2016-11-09 00:58 | NUR ---
CALLED Tj MURRAY FOR NEW PT. RE: LACTIC ACID OF 2.2 . "OK" NO FURTHER ORDERS GIVEN.
--- NOTE | 2016-11-09 02:18 | NUR ---
PT. CHANGED TO DRY CLOTHES RT URINATED IN BED ACCIDENTALLY. CAN NOT WAIT FOR BEDPAN. PT. ON LASIX IVP.
[2016-11-09] MEDS: ALBUTEROL 0.083% 2.5 MG/3 ML NEBU INH SCH ×4 (03:39→15:19)
--- NOTE | 2016-11-09 04:37 | NUR ---
PT. CHANGED BEDDINGS RT WET WITH URINE. PT. STATED SHE CAN NOT WAIT FOR BEDPAN ANYMORE. KEPT CLEAN AND DRY. BREATHING TREATMENT GIVEN BY RESPIRATORY THERAPIST. ON LASIX IVP. NO COUGHING NOTED. 02 SAT AT ROOM AIR 96%.
[2016-11-09 04:52] VITALS: BP 150/90
--- NOTE | 2016-11-09 05:44 | NUR ---
ADLER CATHETER/ URINARY INSERTED FOR STRICT I AND O. DX. CHF EXACERBATION WITH LASIX IVP MEDICATION.
[2016-11-09] MEDS ORDERED: MAG SULF 2000 MG/WATER PREMIX 50 ML IV ONE (07:00)
--- NOTE | 2016-11-09 07:16 | NUR ---
AWAKE AND ALERT TOLERATED INCENTIVE SPIROMETRY (IS) PROCEDURE WELL WITHOUT ADVERSE REACTIONS NOTED ENCOURAGED PATIENT TO USE IS EVERY 2 HOURS WHILE AWAKE
--- NOTE | 2016-11-09 07:25 | NUR ---
RECEIVED PT FROM JOURNALISM PROFESSOR NURSE AT BEDSIDE. PT IS ALERT AWAKE AND ORIENTED. INTRODUCED OURSELVES AND UPDATED THE BOARD. PT HAS L HAND IV 24 G SL. PT HAS ADLER CATH, EMPTIED 650ML. PT IS ON STRICT I&O. PT IS CURRENTLY ON CARDIAC DIET, WILL ORDER A LATE TRAY. PT HAS LOW MG LEVEL OF 1.3, WILL ADMINISTER MAG RIDER ORDERED. PT HAS PITTING EDEMA ON BL FEET 1+. PT DENIES PAIN, HAS NO OTHER COMPLAINTS AT THIS TIME.
[2016-11-09 08:00] VITALS: BP 149/93
[2016-11-09] MEDS ORDERED: INSULIN DETEMIR 100 UNITS/ML 10 ML VIAL SUBQ SCH (09:00)
[2016-11-09] MEDS ORDERED: NON-FORMULARY ITEM (Omeprazole 20 MG) PO SCH (09:00)
[2016-11-09] MEDS ORDERED: NON-FORMULARY ITEM (Ranitidine HCl 150 MG) PO SCH (09:00)
[2016-11-09] MEDS ORDERED: LEVOTHYROXINE 0.05 MG TAB PO SCH (09:00)
--- NOTE | 2016-11-09 09:00 | NUR ---
PT CAME. WALKED PT OUT OF ROOM. PT'S GAIT IS WEAK. PUT PT BACK TO BED. WILL CONTINUE TO MONITOR.
[2016-11-09] MEDS: PANTOPRAZOLE 40 MG INJ VIAL IVP SCH (09:14)
[2016-11-09] MEDS: metFORMIN 500 MG TAB PO SCH ×2 (09:14→20:28)
[2016-11-09] MEDS: FAMOTIDINE 20 MG TAB PO SCH (09:19)
[2016-11-09] MEDS: GLIMEPIRIDE 2 MG TAB PO SCH (09:19)
[2016-11-09] MEDS: FUROSEMIDE 40 MG/4 ML VIAL IVP SCH ×2 (09:19→20:29)
[2016-11-09] MEDS: MULTIVITAMIN/MINERALS 1 TAB PO SCH (09:19)
[2016-11-09] MEDS: ECOTRIN 81 MG TABEC PO SCH (09:20)
[2016-11-09] MEDS: LOSARTAN 50 MG TAB PO SCH ×2 (09:20→20:28)
--- NOTE | 2016-11-09 09:38 | NUR ---
PATIENT HAS BEEN SCREENED AND CATEGORIZED MODERATE NUTRITION RISK. PATIENT WILL BE SEEN WITHIN 3-5 DAYS OF ADMISSION. 11/11/16-11/13/[address]
--- NOTE | 2016-11-09 10:00 | NUR ---
PT PULLED OUT HER IV. INSERTED A NEW ONE ON L HAND 22 G. PT TOLERATED WELL. WILL CONTINUE TO MONITOR.
[2016-11-09] MEDS ORDERED: LEVOTHYROXINE 0.025 MG TAB PO SCH (10:48)
--- NOTE | 2016-11-09 10:55 | NUR ---
PT C/O RIB PAIN 03/30 AFTER MOVING IN BED. WILL SPEAK TO Addendum: 11/09/16 at 1503 by Sandy Damon RN RIGHT RIB PAIN
--- NOTE | 2016-11-09 11:00 | NUR ---
SPOKE TO REGARDING PT'S RIB PAIN. DR WILL ORDER A RIB X-RAY.
[2016-11-09 12:00] VITALS: BP 150/94
[2016-11-09] MEDS: PIPER/TAZO 2.25GM/D5W PREMIX 50 ML IV SCH ×3 (12:33→23:12)
[2016-11-09] MEDS: SUCRALFATE 1 GM TAB PO SCH ×3 (12:33→20:28)
--- NOTE | 2016-11-09 13:43 | NUR ---
CALL PLACED TO FIDELINA AT [facility] [phone] AND INFORMED HER THAT PHYSICIAN HAS ORDERED SNF PLACEMENT FOR PT FOR CONTINUED IV ABX AND PT. PER FIDELINA [facility] AND IF PT ACCEPTED SHE WILL PROVIDE AUTHORIZATION NUMBER. 1400 NAHED FROM [facility] TO EVALUATE PT.
--- NOTE | 2016-11-09 14:30 | NUR ---
PT CALLED TO USE BEDSIDE COMMODE. PT VOIDED IN BED, PADS SOAKED AND VOIDED 100ML INTO COMMODE. CLEANED PT AND HELPED PT BACK TO BED. PT TOLERATED WELL. CALL LIGHT WITHIN REACH. WILL CONTINUE TO MONITOR.
--- NOTE | 2016-11-09 14:53 | NUR ---
SS NOTE: LEFT SECOND MESSAGE FOR PT'S SON, ROLAND REGARDING SNF PLACEMENT I ATTEMPTED TO CALL PT'S DTR, KLEVER PATEL TO INFORM HER REGARDING PT'S POSSIBLE ACCEPTANCE AT [place] BUT HER [facility] ANSWERED AND STATED THAT SHE DOES NOT HAVE A CELL PHONE SO SHE WILL GIVE HER MY CONTACT INFORMATION ONCE SHE GETS HOME.
--- NOTE | 2016-11-09 14:57 | NUR ---
0140 SPOKE WITH FIDELINA AT [facility] AND INFORMED HER THAT PT DUE TO EKG CHANGES WILL HAVE CARDIOLOGY CONSULT. IF PT IS CLEARED FOR DISCHARGE BY [facility] HAS ACCEPTED PT AND ACCEPTING PHYSICIAN IS DR BENSON [phone]. AUTHORIZATION FOR [facility] IS [id number].
--- NOTE | 2016-11-09 15:37 | NUR ---
SS NOTE: I RECEIVED A CALL FROM PT'S SON, ROLAND AND INFORMED HIM OF PT'S ANTICIPATED DISCHARGE PLAN. HE STATED THAT HE IS IN AGREEMENT WITH PT GOING [place] [facility] [place]. I PROVIDED HIM WITH THEIR CONTACT INFORMATION.
[2016-11-09] MEDS: BLOOD GLUCOSE MONITORING 1 DEV DEV FS SCH ×2 (15:49→20:31)
[2016-11-09 16:00] VITALS: BP 150/75
--- NOTE | 2016-11-09 16:05 | NUR ---
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
--- NOTE | 2016-11-09 16:25 | NUR ---
SPOKE TO REGARDING [facility] RECON. STATED HE HELD [facility].
--- NOTE | 2016-11-09 16:45 | NUR ---
PT CAME BACK FROM X-RAY. PT IN STABLE CONDITION. NO COMPLAINTS AT THIS TIME. CALL LIGHT WITHIN REACH. WILL CONTINUE TO MONITOR.
[2016-11-09] MEDS ORDERED: SIMVASTATIN 10 MG TAB PO SCH (17:00)
--- NOTE | 2016-11-09 17:14 | NUR ---
ADMINISTERED AFTERNOON MEDS. PT TOLERATED WELL. CALL LIGHT WITHIN REACH. WILL CONTINUE TO MONITOR.
[2016-11-09] MEDS: INSULIN LISPRO SLIDING SCALE 100 UNITS/ML VIAL SUBQ PRN ×2 (17:19→20:33)
[2016-11-09] MEDS ORDERED: ALBUTEROL SULFATE/IPRATROPIU 3 ML SOL IH PRN (17:45)
[2016-11-09] MEDS: ALBUTEROL SULFATE/IPRATROPIU 3 ML SOL IH SCH (19:16)
--- NOTE | 2016-11-09 19:20 | NUR ---
RECEIVED REPORT FROM BRENDA RIGGINS/FREDIS AT BEDSIDE. INITIAL ASSESSMENT COMPLETED. PT AAOX3; CONFUSED AT TIMES. PT HAS GENERALIZED WEAKNESS, PT USES BEDSIDE COMMODE WITH ASSIST. PT HAS IV TO LEFT HAND G 22; ASYMPTOMATIC, PATENT AND INTACT. PT'S SKIN IS INTACT. PT STABLE AT THIS TIME. ORIENTED PT TO ROOM AND SURROUNDINGS AND USE OF CALL LIGHT. EXPLAINED PLAN OF CARE TO PT, REINFORCEMENT NEEDED. SAFETY/FALL RISK PRECAUTIONS IN PLACE. BED ALARM ON, WILL CONTINUE TO MONITOR PT.
--- NOTE | 2016-11-09 19:25 | NUR ---
ENDORSED CARE OF PT TO PRESS LOADER NURSE. PT IN STABLE CONDITION.
[2016-11-09 20:00] VITALS: BP 136/64
--- NOTE | 2016-11-09 20:25 | NUR ---
PT COMPLAINING OF RIGHT INTERCOSTAL PAIN 11/28. VS STABLE, WILL MEDICATE ORDERED.
[2016-11-09] MEDS: DOCUSATE SODIUM 100 MG GELCAP PO SCH (20:27)
--- NOTE | 2016-11-09 20:39 | NUR ---
PT TOLERATED 2100 MEDS WELL. BP 141/78, HR 90, T 97.9, R 22, 02 SAT 98%. WILL CONTINUE TO MONITOR PT.
[2016-11-09] MEDS ORDERED: METOPROLOL SUCCINATE 50 MG TABER PO SCH (21:00)
--- NOTE | 2016-11-09 22:31 | NUR ---
PT NEEDED ASSISTANCE TO USE BEDSIDE COMMODE. PT BACK IN BED NOW, BED ALARM ON.
[2016-11-10] VITALS: BP 141/72
--- NOTE | 2016-11-10 00:15 | NUR ---
PT SLEEPING AT THIS TIME. NO SIGNS OF DISTRESS NOTED, CALL LIGHT WITHIN REACH.
--- NOTE | 2016-11-10 01:45 | NUR ---
ASSISTED PT TO USE BEDSIDE COMMODE. PT BACK IN BED NOW, WILL CONTINUE TO MONITOR.
--- NOTE | 2016-11-10 03:45 | NUR ---
CHECKED PT. VS STABLE, WILL CONTINUE TO MONITOR PT.
[2016-11-10 04:00] VITALS: BP 138/75
[2016-11-10] MEDS: PIPER/TAZO 2.25GM/D5W PREMIX 50 ML IV SCH ×2 (05:45→15:40)
[2016-11-10] MEDS: DEXTROSE 50% 50 ML SYR IVP PRN ×2 (05:58→08:29)
[2016-11-10] MEDS: ALBUTEROL SULFATE/IPRATROPIU 3 ML SOL IH SCH ×2 (06:00→13:21)
--- NOTE | 2016-11-10 06:01 | NUR ---
CHECKED PT'S BLOOD SUGAR AND IT IS 28. PT AWAKE AND TALKING. 50%DEXTROSE GIVEN. WILL CONTINUE TO MONITOR PT.
--- NOTE | 2016-11-10 06:18 | NUR ---
RECHECKED PT'S BLOOD SUGAR AND IT IS NOW 120. PT STABLE, WILL CONTINUE TO MONITOR PT.
[2016-11-10] MEDS: BLOOD GLUCOSE MONITORING 1 DEV DEV FS SCH ×2 (06:27→12:25)
--- NOTE | 2016-11-10 06:56 | NUR ---
DR. VALDIVIA AWARE THAT PT'S POTASSIUM IS 2.6, AND MAGNESIUM 1.3. WILL FOLLOW UP ON ORDERS. PT'S BLOOD GLUCOSE IS120 NOW.
[2016-11-10] MEDS ORDERED: MAG SULF 2000 MG/WATER PREMIX 50 ML IV SCH (07:10)
[2016-11-10] MEDS ORDERED: POTASSIUM CHLORIDE 10 MEQ TABER PO SCH ×2 (07:11→09:17)
--- NOTE | 2016-11-10 07:20 | NUR ---
RECEIVED PATIENT REPORT AT BEDSIDE. PATIENT, AWAKE, ALERT AND ORIENTED. NO S/S OF DISTRESS NOTED. NO C/O OF PAIN. PATIENT ON ROOM AIR. IV LINE NOTED TO THE LEFT HAND INTACT AND ASYMPTOMATIC. PATIENT ON TELE MONITORING. BED LOWERED WITH CALL LIGHT WITHIN REACH. WILL CONTINUE TO MONITOR
--- NOTE | 2016-11-10 07:25 | NUR ---
ENDORSED PLAN OF CARE TO BRENDA RAMON FOR CONTINUITY OF CARE. PT INSTABLE CONDITION.
[2016-11-10 08:00] VITALS: BP 141/54
[2016-11-10] MEDS ORDERED: POTASSIUM CHLORIDE 40 MEQ, LIDOCAINE 1% 25 MG in NACL 0.9% 250 ML IV SCH (08:00)
[2016-11-10] MEDS: ECOTRIN 81 MG TABEC PO SCH (08:18)
[2016-11-10] MEDS: metFORMIN 500 MG TAB PO SCH ×2 (08:18→09:00)
[2016-11-10] MEDS: LOSARTAN 50 MG TAB PO SCH (08:18)
[2016-11-10] MEDS: DOCUSATE SODIUM 100 MG GELCAP PO SCH (08:18)
[2016-11-10] MEDS: FAMOTIDINE 20 MG TAB PO SCH (08:19)
[2016-11-10] MEDS: SUCRALFATE 1 GM TAB PO SCH ×2 (08:19→13:00)
[2016-11-10] MEDS: PANTOPRAZOLE 40 MG INJ VIAL IVP SCH (08:19)
[2016-11-10] MEDS: MULTIVITAMIN/MINERALS 1 TAB PO SCH (08:19)
[2016-11-10] MEDS: GLIMEPIRIDE 2 MG TAB PO SCH (08:19)
--- NOTE | 2016-11-10 08:30 | NUR ---
BLOOD SUGAR 44. PROTOCOL INITIATED. DR VALDIVIA NOTIFIED
[2016-11-10] MEDS: FUROSEMIDE 40 MG/4 ML VIAL IVP SCH (09:00)
[2016-11-10] MEDS ORDERED: MULTIVITAMIN/MINERALS 1 TAB PO SCH (09:00)
--- NOTE | 2016-11-10 09:00 | NUR ---
ADMINISTERED DUE MEDS. PATIENT TOLERATED WELL. DAUGHTER PRESENT AT BEDSIDE
--- NOTE | 2016-11-10 09:30 | NUR ---
BLOOD SUGAR 130. NO S/S OF DISTRESS NOTED
[2016-11-10 12:00] VITALS: BP 124/70
--- NOTE | 2016-11-10 13:20 | NUR ---
CM NOTE SPOKE WITH JOSE ARMANDO OF [facility] PH# [phone] TO SET UP PATIENT TRANSPORT GOING TO [facility] [address] [employer] MANAGER TIME 1600 TODAY, AUTH# [id number]. NUMBER TO CALL AT [facility] FOR REPORT PH# [phone]. CHARGE NURSE DILEPE AND NURSE YENNY ROBB.
[2016-11-10] MEDS ORDERED: LANTUS SOLOS100 U/ML SUBQ (15:12)
[2016-11-10] MEDS ORDERED: LANTUS INS100 UNITS/ SUBQ (15:12)
[2016-11-10] MEDS ORDERED: CLEOCIN HCL300 MG PO (15:29)
[2016-11-10] MEDS ORDERED: LASIX40 MG PO (15:29)
[2016-11-10] MEDS ORDERED: BD LACTINEX1.4 MG PO (15:29)
[2016-11-10] MEDS ORDERED: LEVAQUIN750 MG PO (15:29)
--- NOTE | 2016-11-10 15:59 | NUR ---
REPORT GIVEN TO VERITO AT [facility]
--- NOTE | 2016-11-10 16:20 | NUR ---
PATIENT DISCHARGED TO [facility]. PATIENT PICKED UP BY [facility]. DISCHARGE INSTRUCTIONS GIVEN. IV LINE DISCONTINUED. PATIENT LEFT WITH ALL HER BELONGINGS AND DISCHARGE PAPERS. PATIENT LEFT IN STABLE CONDITION
== END 2016-11-10 16:20 ==
LOC: MED 18:32 → MTU 22:19 → UNDOADMOB 22:19 → INTOOBSV 22:19 → MTU 11-09 11:04
PROVIDERS: ADMIT Family Medicine; ATTEND Family Medicine
DX: G93.41 Metabolic encephalopathy (principal); N39.0 Urinary tract infection, site not specified; M94.0 Chondrocostal junction syndrome [Tietze]; E11.9 Type 2 diabetes mellitus without complications; I42.0 Dilated cardiomyopathy; I51.89 Other ill-defined heart diseases; E80.6 Other disorders of bilirubin metabolism; E43 Unspecified severe protein-calorie malnutrition; E03.9 Hypothyroidism, unspecified; E83.42 Hypomagnesemia; E78.5 Hyperlipidemia, unspecified; K21.9 Gastro-esophageal reflux disease without esophagitis; I07.1 Rheumatic tricuspid insufficiency; I34.0 Nonrheumatic mitral (valve) insufficiency; I51.7 Cardiomegaly; I25.10 Atherosclerotic heart disease of native coronary artery without angina pectoris; I11.0 Hypertensive heart disease with heart failure; I50.9 Heart failure, unspecified; Z95.1 Presence of aortocoronary bypass graft
CPT/HCPCS: 36415; 71010; 71100; 80048; 80053; 80061; 80305; 81001; 82150; 82248; 82948; 83036; 83605; 83690; 83735; 83880; 84100; 84439; 84443; 84484; 85025; 85610; 85730; 87040; 87081; 87086; 93005; 93925; 94640; 94760; 96361; 96365; 96366; 96367; 96372; 96375; 96376; 97110; 97116; 97163; 97530; 99285; C9113; G0378; J1644; J1815; J1940; J2001; J2543; J3475; J3480; J7030; J7042; J7613; J7620; Q0092